=== PATIENT | male | born 1970 | race Caucasian/White ===

== ENCOUNTER 2017-11-20 06:19 | Emergency (ER) | payer MEDICAID, SELFPAY ==
[2017-11-20 06:20] VITALS: BP 142/100; PULSE 136; RESP 28; TEMP 37.1; O2SAT 96; BMI 31.5
--- NOTE | 2017-11-20 06:30 | RAD_ITS ---
STUDY: X-RAY CHEST REASON FOR EXAM: Male, 47 years old. Right upper posterior chest pain TECHNIQUE: Single frontal view of the chest. COMPARISON: None. FINDINGS: The lungs are clear and expanded. There is no demonstrated pleural abnormality. Normal size heart. Normal mediastinum and hay. Normal visualized pulmonary arteries. Normal visualized aortic arch and descending thoracic aorta. Normal visualized thoracic spine. Remote right rib trauma. Residual contrast in the urinary tract. RAD/Chest 1 View (Portable) IMPRESSION: No acute pulmonary findings. Electronically Signed: Prasad Hull MD at 7:57 EDT Tel , Service support ,
--- NOTE | 2017-11-20 06:35 | ED.DCSUM_ITS ---
- ER Visit Summary Date of Service: 11/20/17 Chief Complaint: Right upper quadrant and right flank pain History of Present Illness: The patient is a 47 M presents to the emergency department with right upper quadrant and right flank pain. The patient symptoms began about 12 hours ago. He states that it started gradually. He describes worsening pain mostly into his right flank. He is nauseated without vomiting. He also admits to some shortness of breath. He denies any fevers or chills. The patient has no underlying history of lung disease. His only history is a prior opiate abuse and he is on Suboxone. He has had no abdominal surgery. He denies any fevers or chills. He denies any chest pain. He states his pain is worse when he tries to lay flat. Physical Examination: Vital signs reviewed General: Well-nourished, well-developed Head: Normocephalic, atraumatic Eyes: Pupils equal and reactive, extraocular muscles intact Neck, supple, no lymphadenopathy Heart: Regular rate and rhythm Respiratory: No distress, clear bilaterally Abdomen: Soft, nontender, nondistended, no peritoneal signs Back: Right-sided CVA tenderness, no rash Extremities: Nontender, no edema, no cords Skin: Normal color no rash Neuro: Alert and oriented, no focal or lateralizing deficits Test Results: [] Emergency Department Course and Treatment: On initial exam, I cannot really cannot re-create any abdominal pain with palpation. The patient's pain seems to be mostly in his right flank. However, he was tachycardic and tachypneic. IV was established. Patient was given analgesics and antiemetics. Screening labs are ordered. I also ordered a d-dimer given his tachycardia and tachypnea along with his right flank pain and pain with taking deep breath. Treatment Plan: [] Disposition: [] Impression: [] This note was generated with [employer] dictation software. It may contain incorrect words, spelling, and punctuation that were not noted in review of the chart prior to signing <Emanuel Stephens - Last Filed: 11/20/17 06:35> - ER Visit Summary Date of Service: 11/20/17 Chief Complaint: [] History of Present Illness: The patient is a 47 M [] Physical Examination: Patient's most recent vitals have improved. He is breathing 20 times a minute with a heart rate 97 and pulse ox 94% on room air. Test Results: CT of the abdomen and pelvis was obtained and reviewed by me and interpreted by radiologist as remarkable for atelectasis right lower lobe. Because of the elevated d-dimer and the fact that the patient is tachycardic tachypnic with pleuritic chest pain a CTA of the chest was ordered. The CTA of the chest reveals a right lower lobe infiltrate. Emergency Department Course and Treatment: Patient received his first dose of antibiotics in the department and was discharged with prescription for anti- inflammatory and levofloxacin. He was not prescribed opiate analgesia since he has a history of opiate addiction and on Suboxone. Treatment Plan: Prescription for Naprosyn and levofloxacin Disposition: Discharged to home with friend Impression: 1. Community-acquired pneumonia, right lower lobe 2. Sinus tachycardia documented on monitor 3. Dyspnea secondary to #1 4. Pleuritic chest pain secondary to #1 This note was generated with [employer] dictation software. It may contain incorrect words, spelling, and punctuation that were not noted in review of the chart prior to signing <José Antonio Bryan - Last Filed: 11/20/17 08:40> ED Disposition <Emanuel Stephens - Last Filed: 11/20/17 06:35> <José Antonio Bryan - Last Filed: 11/20/17 08:40> - Plan for ED Patient: Disposition: Home or Assisted Living Chief Complaint: Abd Pain Instructions: ED Pneumonia Adult Prescriptions: Levofloxacin [Levaquin] 500 mg PO DAILY #6 tab Naproxen [Naprosyn] 500 mg PO BID #14 tab Referrals: Care Physician,No Primary [Primary Care Provider] - Additional Instructions: You should follow-up with your primary care doctor who is listed on your insurance card in 3-5 days.
[2017-11-20] MEDS: Ketorolac 30 MG/ML Syringe IV (06:45)
[2017-11-20] MEDS: 0.9% Normal Saline 1,000 ML 1000 ML IV (06:45)
[2017-11-20] MEDS: Ondansetron 4 MG/2 ML Vial IV (06:45)
--- NOTE | 2017-11-20 06:53 | CT_ITS ---
STUDY: CT ABDOMEN AND PELVIS WITH CONTRAST REASON FOR EXAM: Male, 47 years old. PAIN, HYPOXIA, NO KNOWN INJURY, HURTS TO BREATH, HX-CANCER ON EAR RADIATION DOSAGE (If Supplied By Facility): CTDIvol = ( 23.03 ) mGy, DLP = ( 2142.47 ) mGycm TECHNIQUE: Transaxial images were obtained from the dome of the diaphragm to the symphysis pubis without oral contrast. 100 ml of Isovue 300 contrast was administered. Sagittal and coronal images were reconstructed. Individualized dose optimization techniques were used for this CT. COMPARISON: 04/07/2012 FINDINGS: Right basilar alveolar disease. The visualized portions of the heart are within normal limits. Normal liver. Normal gallbladder and extrahepatic biliary system. Normal spleen. Normal pancreas. Normal bilateral adrenal glands. Normal right kidney. Normal left kidney. Normal visualized stomach. Normal small intestine. Normal colon. The appendix is visualized and appears normal. Normal abdominal aorta. Normal inferior vena cava. Normal retroperitoneum. Normal urinary bladder. There are prostatic calcifications.4.5 x 1.2 cm lipoma in the right lower lateral chest wall musculature. Normal abdominal wall. 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 CT/Abdomen/Pelvis W IV Cont ONLY IMPRESSION: Right basilar alveolar disease. No evidence of acute intestinal pathology or acute obstructive uropathy. 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 Electronically Signed: Prasad Hull MD at 7:45 EDT Tel , Service support ,
--- NOTE | 2017-11-20 06:53 | CT_ITS ---
STUDY: CTA CHEST REASON FOR EXAM: Male, 47 years old. PAIN, HYPOXIA, NO KNOWN INJURY, HURTS TO BREATH RADIATION DOSAGE (If Supplied By Facility): CTDIvol = ( 23.03 ) mGy, DLP = ( 2142.47 ) mGycm TECHNIQUE: The examination was performed with the intravenous administration of 100 ml of Isovue 370 contrast material. Post-processing of the angiographic images was performed, with multiplanar reformation and 3D reconstruction. Individualized dose optimization techniques were used for this CT. COMPARISON: None. FINDINGS: Normal enhancement of the main pulmonary artery and right and left pulmonary arteries. Normal enhancement of the bilateral peripheral pulmonary arteries. There is no demonstrated pulmonary embolism. Normal thoracic aorta and visualized great vessels. There is no demonstrated aortic dissection. Normal heart and pericardium. Normal mediastinum. Normal hilar regions. Normal visualized trachea and bronchi. Right lower lobe alveolar disease and atelectasis calcified granuloma in the right upper lobe. Normal pleura. Normal chest wall structures. Remote right rib trauma. Normal visualized upper abdomen. CT/CTA Chest W/WO Contrast IMPRESSION: Normal CTA chest examination, without a demonstrated pulmonary embolism or arterial dissection. Right lower lobe alveolar disease could represent pneumonia. Electronically Signed: Prasad Hull MD at 7:49 EDT Tel , Service support ,
[2017-11-20 07:00] LABS: Absolute Lymphocyte Count 2.58 X10^3/ul (0.83-4.51); Absolute Neutrophil Count 4.8 X10^3/uL (2.0-7.7); Basophil# 0.02 X10^3/uL; Basophil% 0.2 % (0-1); Eosinophil# 0.29 X10^3/uL; Eosinophils% 3.4 % (0-5); Hematocrit 44.3 % (40-54); Hemoglobin 15.1 g/dl (13.0-16.5); Lymphocyte # 2.58 X10^3/ul (4.0); Lymphocyte % 30.3 % (19-41); Mean Corp Hgb Conc 34.1 g/gl (32-36); Mean Corpuscular Hgb 30.3 pg (27.0-32.0); Mean Platelet Vol. 11.1 fl (6.2-12.0); Monocyte# 0.78 X10^3/uL; Monocyte% 9.2 % (0-10); Neutrophil # 4.82 X10^3/uL (2.7-7.7); Neutrophil % 56.7 % (47-70); Platelet Count 206 K/mm3 (150-450); RBC Distribution Width CV 12.5 % (11.6-14.6); RBC Distribution Width SD 40.5 fl (35.1-43.9); Red Blood Count 4.98 M/mm3 (4.6-6.2); White Blood Count 8.5 K/mm3 (4.4-11.0)
[2017-11-20 07:01] LABS: ALB/GLOB Ratio 1.1 RATIO (0.9-2.4); AST(SGOT) 14 U/L (15-37); Alanine Aminotransfer ALT/SGPT 26 U/L (16-61); Albumin, Serum 3.9 g/dL (3.2-5.0); Alkaline Phosphatase 97 U/L (45-117); Anion Gap 8 (5-15); BUN 11 mg/dL (7-18); Calcium,Total 8.8 mg/dL (8.5-10.1); Chloride 100 mmol/L (98-107); EST Glomerular Filtration Rate 76 mL/min (>60); Est Glom Filt Rate - Afr Amer 92 mL/min (>60); Globulin 3.6 g/dL (2.2-4.2); Glucose 122 mg/dL (74-106); Lipase 84 U/L (73-393); Potassium 3.7 mmol/L (3.5-5.1); Protein, Total 7.5 g/dL (6.4-8.2); Sodium Level 139 mmol/L (136-145)
[2017-11-20 07:09] LABS: D-Dimer Quantitative (DVT/PE) 0.77 FEU/ug/m (0.27-0.49)
[2017-11-20 07:10] LABS: POSITIVE COUNT NO; POSITIVE DIFFERENTIAL NO; POSITIVE MORPHOLOGY NO
[2017-11-20 07:18] LABS: Red Blood Cells-Urine 0 SEEN /hpf (0-5)
[2017-11-20 07:20] LABS: Color, Urine Yellow (Yellow); Glucose, Dipstick Normal (Normal); Ketone-Dipstick Negative (Negative); Leukocyte Esterase-Dipstick 25 /ul (Negative); Nitrite-Dipstick Negative (Negative); Occult Blood-Urine 10 /ul (Negative); Protein-Dipstick Negative (Negative); Specific Gravity, Urine 1.025 (1.002-1.030); Urine Bilirubin Dipstick Negative (Negative); Urine Clarity Sl. Cloudy (Clear); Urine Urobilinogen 1 mg/dl (Normal)
[2017-11-20 07:26] LABS: Squamous Epithelial Cells - UA 0-5 SEEN /hpf (0-5); White Blood Cells 0-5 SEEN /hpf (0-5)
[2017-11-20 07:27] LABS: Bacteria RARE /hpf (None Seen); Mucous, Urine 2+ /hpf (<or=2+)
[2017-11-20 08:00] VITALS: BP 123/96; PULSE 97; RESP 18; O2SAT 97
[2017-11-20 08:18] VITALS: BP 140/98; PULSE 84; RESP 17; O2SAT 94
[2017-11-20 08:39] VITALS: BP 132/83; PULSE 103; RESP 17; O2SAT 95
== END 2017-11-20 08:48 | disposition home or self-care (01) ==
PROVIDERS: Emergency Provider Emergency Medicine
DX: J18.9 Pneumonia, unspecified organism (principal); R07.81 Pleurodynia; R06.00 Dyspnea, unspecified; R00.0 Tachycardia, unspecified; Z72.0 Tobacco use; F11.10 Opioid abuse, uncomplicated; Z79.899 Other long term (current) drug therapy
CPT/HCPCS: 71045; 71275; 74177; 80053; 81001; 83690; 85025; 85379; 96361; 96374; 96375; 99285; J7030; Q9967; A4216; J2405

== ENCOUNTER → 2020-02-18 09:15 | Outpatient (CLI) | payer MEDICAID, SELFPAY | DX: Z20.828 Contact with and (suspected) exposure to other viral communicable diseases (principal) | CPT/HCPCS: 87635; C9803; U0003 ==

== ENCOUNTER 2022-06-04 12:43 | Emergency (ER) | payer MEDICAID, SELFPAY ==
[2022-06-04 12:44] VITALS: BP 121/91; PULSE 96; RESP 14; TEMP 36.1; O2SAT 95; BMI 34.8
--- NOTE | 2022-06-04 13:14 | RAD_ITS ---
HISTORY: fall/injury. TECHNIQUE: XR Ribs Unilateral W/ PA Chest Min 3 Views. COMPARISON: 11/20/2017. FINDINGS: CARDIOMEDIASTINAL BORDERS: Cardiac silhouette within normal limits in size. Mediastinal contour unremarkable. LUNGS: Radiographically clear. PLEURA: No pleural effusion or pneumothorax seen. OSSEOUS STRUCTURES: No acute displaced left rib fracture seen. RAD/Ribs Uni Min 3V w/PA Chest IMPRESSION: No acute abnormality identified. Electronically Signed: Quita Ly MD at 13:53 EST ,
--- NOTE | 2022-06-04 13:16 | EX.ED.GENINJ ---
HPI History of Present Illness Chief Complaint: Chest Other Informant: patient Onset/Context/Timing Onset: Days (2-3) Mechanism/Context: Fall and Trip Location of pain/injuries: - (Left chest wall/ribs) Quality of Pain: Aching Current Severity: Moderate Maximum Severity: Moderate Worsened by: Deep inspiration, movement, palpation Relieved by: Remaining still and breathing easy Associated Symptoms Associated Symptoms: Negative for Parasthesias, Weakness, Loss of function, Inability to ambulate, Loss of consciousness or Amnesia Narrative Narrative: Patient was walking his dog a couple nights ago, the dog suddenly pulled and started to run, pulling the patient because he was holding onto the leash, and his foot got caught on an uneven piece of sidewalk, causing him to fall down to his left side injuring his chest wall against the cement, he states he uses left hand to brace himself as well, he does not have any pain in his shoulder or upper extremity or anywhere else. He states initially the pain was not severe but it has gotten worse of the last 2 days. PFSH PFS Medical History no medical history no medical history Home Medications buprenorphine 8 mg-naloxone 2 mg sublingual tablet 1 tab sublingual DAILY 11/20/17 [History Last Taken Unknown] levofloxacin 500 mg tablet 500 mg PO DAILY #6 tabs 11/20/17 [Rx Last Taken Unknown] naproxen 500 mg tablet 500 mg PO BID #14 tabs 11/20/17 [Rx Last Taken Unknown] hydrocodone-acetaminophen 5-325mg 5mg-325mg 1 tab PO Q6H PRN PRN Pain 3 days #8 TABLETS 06/04/22 [Rx Last Taken Unknown] Allergy/AdvReac Type Severity Reaction Status Date / Time codeine Allergy Itching Verified 06/04/22 12:44 Sulfa (Sulfonamide Allergy Shortness Verified 06/04/22 12:44 Antibiotics) of breath naproxen AdvReac Vomiting Verified 06/04/22 12:44 Social History Smoking Status: Never smoker ROS ROS ED Constitutional Constitutional ED: Denies chills or fever(s) Eyes Eyes: Denies change in vision or diplopia ENT ENT ED: Denies ear pain, epistaxis, facial pain or rhinorrhea Cardiovascular Cardiovascular: Reports chest pain; Denies palpitations Respiratory/Chest Respiratory/Chest: Denies cough or dyspnea Gastrointestinal Gastrointestinal: Denies abdominal pain, diarrhea, melena, nausea or vomiting Genitourinary Genitourinary ED: Denies dysuria or hematuria Musculoskeletal Musculoskeletal: Denies back pain, extremity pain or neck pain Integumentary Denies abscess, Abrasions, laceration or rash Neurologic Neurologic: Denies confusion, headache(s), paresthesias or weakness EXAM Physical Exam Const Vital Signs: 06/04/22 12:44 06/04/22 13:00 Temperature 97 F L Temperature Source Temporal Pulse Rate 96 Respiratory Rate 14 Respiratory Effort Normal Non-Labored Respiratory Pattern Normal Blood Pressure 121/91 H Blood Pressure Mean 101 Pulse Ox 95 Oxygen Delivery Method Room Air Positive well nourished and well developed General Appearance ED: well developed and NAD HEENT Reports nasal mucous membranes and turbinates normal atraumatic Face and Sinus: Negative for facial tenderness Eyes PERRL and EOMs intact bilaterally Visual Acuity: other Other Details: no entrapment or pain with extraocular movements Neck full ROM and supple General: Negative for tenderness Chest Wall inspection of chest normal Chest Narrative: Tender left lower anterior ribs, up to the inframammary area as well as the anterior axillary line. No crepitance or subcutaneous emphysema. No step-off. No subcostal abdominal tenderness. No sternal tenderness. No spinal tenderness. No splinting with deep inspiration although he states that hurts. Chest: symmetrical chest wall rise and tenderness; Negative for crepitus Resp normal respiratory effort and clear to auscultation bilaterally Resp Narrative: Equal breath sounds are bilaterally and equal. Percussion: other equal BS bilat Cardio no murmurs Rate: regular rate Rhythm: regular rhythm GI normal to inspection, nondistended, normoactive bowel sounds, soft to palpation and non-tender Back/Spine normal ROM Cervical Spine: Negative for cervical spine tenderness Thoracic Spine / Upper Back: Negative for thoracic spinal tenderness Lumbar Spine / Lower Back: Negative for lumbar spinal tenderness Extremity normal to inspection and full ROM General Extremety ED: Negative for tenderness Neuro oriented x3, CN's II-XII intact bilaterally, moves all extremities, no focal motor deficits and no sensory deficits noted Alexis Coma Scale: document GCS findings Spontaneous Obeys Commands Oriented 15 Sensorium / Orientation: awake and alert Psych mental status grossly normal and thought process normal Skin no wounds Lesions: no lesions Rashes: no rashes MDM MDM MDM Narrative Medical decision making narrative: 5 view x-ray series of the left ribs including PA chest normal on my interpretation. Radiology in agreement. Patient reassured, does not have a displaced fracture and/or pneumothorax. Certainly could be hairline fracture that is not showing up on x-ray, treatment is the same as a bruised rib cage for now which is supportive care, and he is asking for something for pain for when he is going to bed because he is having trouble sleeping due to the pain. I think that is not unreasonable. I saw that he is on Suboxone, however. I asked him about this first. He admits that he is on it because of addiction, he has been on it for over 6 months and is now down to 1 Suboxone per day, he follows with Dr. Bal. He talk to Dr. Bal prior to coming here, and according to him, if he is put on some narcotic to take at night before bed, they will continue to monitor him for that and are okay with that. Radiography Diagnostic Testing: Clinical Impression(s) from Imaging Studies Ribs w/Chest X-Ray 06/04/22 13:14 IMPRESSION: No acute abnormality identified. Electronically Signed: Quita Ly MD at 13:53 EST , Discharge Plan Triage Chief Complaint: Chest Other ED Provider: Hi Roman Dx/Rx/DC Orders Clinical Impression: Contusion of left chest wall, Fall from slip, trip, or stumble Instructions: ED Rib Contusion or Minor Fracture Prescriptions: New hydrocodone-acetaminophen [hydrocodone-acetaminophen] 1 TABLET tablet 1 tab PO Q6H PRN PRN (Reason: Pain) 3 Days Qty: 8 0RF No Action buprenorphine-naloxone 0 tablet, sublingual 1 tab sublingual DAILY Label Comments: levofloxacin 500 MG tablet 500 mg PO DAILY Qty: 6 0RF naproxen 500 MG tablet 500 mg PO BID Qty: 14 0RF Primary Care Provider: Care Physician,No Primary Referrals: Care Physician,No Primary [Primary Care Provider] - Doctor,Your [Non-Staff] - 1 Week if not improving Disposition Disposition: Home, Self Care
[2022-06-04 14:38] VITALS: RESP 18
== END 2022-06-04 14:39 | disposition home or self-care (01) ==
PROVIDERS: Emergency Provider Emergency Medicine; Visit Provider Emergency Medicine
DX: S20.219A Contusion of unspecified front wall of thorax, initial encounter (principal); W19.XXXA Unspecified fall, initial encounter
CPT/HCPCS: 71101; 99282

== ENCOUNTER 2025-02-09 18:01 | Emergency (ER) | payer MEDICAID, SELFPAY ==
[2025-02-09 18:01] VITALS: BP 125/93; PULSE 122; RESP 26; TEMP 36.4; O2SAT 95; BMI 31.3
[2025-02-09 18:04] VITALS: BP 125/93; PULSE 122; RESP 26; TEMP 36.4; O2SAT 96
--- NOTE | 2025-02-09 18:15 | EKG12_ITS ---
Test Reason : SOB Blood Pressure : */* mmHG Vent. Rate : 118 BPM Atrial Rate : 118 BPM P-R Int : 156 ms QRS Dur : 102 ms QT Int : 314 ms P-R-T Axes : 55 20 -22 degrees QTcB Int : 440 ms Sinus tachycardia Inferior infarct , age undetermined T wave abnormality, consider anterior ischemia Abnormal ECG Confirmed by NATALIE JACKSON, STACIE ([id number]), clinical editor ALISON JAIMES ([id number]) on 02/11/2025 7:53:54 AM Referred By: ES/UG Confirmed By: STACIE ESTRADA MD
[2025-02-09 18:23] VITALS: O2SAT 93
[2025-02-09 18:59] VITALS: BP 137/94; PULSE 113; RESP 17; O2SAT 93
[2025-02-09 19:04] VITALS: BP 124/100; PULSE 106; RESP 19; TEMP 36.3; O2SAT 95
--- NOTE | 2025-02-09 19:04 | RAD_ITS ---
EXAM: XR Chest, 2 Views CLINICAL INDICATION: PRODUCTIVE COUGH, FEVER, TACHYPNEA TECHNIQUE: Frontal and lateral views of the chest. COMPARISON: No relevant prior studies available. FINDINGS: LUNGS AND PLEURAL SPACES: Left upper lobe atelectasis or pneumonia. No pneumothorax. HEART: Unremarkable. No cardiomegaly. MEDIASTINUM: Unremarkable. Normal mediastinal contour. BONES/JOINTS: Unremarkable. No acute fracture. RAD/Chest PA and Lateral IMPRESSION: Left upper lobe atelectasis or pneumonia. Reading Location: [id number]
--- NOTE | 2025-02-09 19:05 | ED.VIS.DYS ---
HPI History of Present Illness Chief Complaint: Shortness of Breath Detail of Chief Complaint: Shortness of breath, productive cough, elevated temperature Informant: patient Onset/Context/Timing Onset: Days (, February 06) Context: sudden Timing: Continuous and Waxes and wanes Quality: Positive for Dyspnea on exertion and Wheezing; Negative for Orthopnea or PND Current Severity: Mild Maximum Severity: Severe Worsened by: Exertion; Not Worsened By Lying flat Relieved by: Nothing Associated Symptoms cough, fever, yellow sputum and green sputum; Negative for rhinorrhea, post nasal drip, ear pain, sore throat, subjective, chills, sweats, clear sputum or white sputum Chest Pain: Positive for None Narrative Narrative: Patient is a 54-year-old male. He chews tobacco. He has allergy to sulfa and NSAIDs. He is on Suboxone. Has been on Suboxone for 5 years. He presents because of a productive cough that started . After coughing episode today he became lightheaded. He had a Tmax of 100.0 ?F. He denies rhinorrhea postnasal drainage or sore throat. He denies leg pain, swelling or discoloration. He denies history of VTE and he has no risk factors for VTE. PE Risk Factors: Negative for Cancer, OCP + Smoking + > 35, Prior DVT or PE, Recent immobilization, Recent surgery or Recent travel Prior similar symptoms: Yes (Pneumonia) Recent Illness/Hospitalization: No [facility] Medical History (Updated 02/09/25 @ 20:[address] José Antonio Bryan MD) Asthma Home Medications ?Medication ?Instructions ?Recorded ?Last Taken ?Type buprenorphine 8 mg-naloxone 2 mg 1 tab sublingual DAILY 11/20/17 Unknown History sublingual tablet levofloxacin 500 mg tablet 500 mg PO DAILY #6 tabs 11/20/17 Unknown Rx naproxen 500 mg tablet 500 mg PO BID #14 tabs 11/20/17 Unknown Rx hydrocodone-acetaminophen 5-325mg 1 tab PO Q6H PRN PRN Pain 3 days 06/04/22 Unknown Rx 5mg-325mg #8 TABLETS levofloxacin 500 mg tablet 500 mg PO DAILY #6 tabs 02/09/25 Unknown Rx Allergy/AdvReac Type Severity Reaction Status Date / Time codeine Allergy Itching Verified 02/09/25 18:04 Sulfa (Sulfonamide Allergy Shortness Verified 02/09/25 18:04 Antibiotics) of breath naproxen AdvReac Vomiting Verified 02/09/25 18:04 Social History Smoking Status: Never smoker ROS ROS ED Constitutional Constitutional ED: Reports chills and fever(s); Denies sweats or weight loss Eyes Eyes: Denies blurry vision or change in vision ENT ENT ED: Denies ear pain, rhinorrhea or sore throat Cardiovascular Cardiovascular: Denies chest pain, orthopnea, palpitations or paroxysmal nocturnal dyspnea Respiratory/Chest Respiratory/Chest: Reports cough, dyspnea and sputum; Denies dyspnea on exertion, orthopnea or paroxysmal nocturnal dyspnea Gastrointestinal Gastrointestinal: Denies abdominal pain, melena, nausea or vomiting Genitourinary Genitourinary ED: Denies dysuria or hematuria Musculoskeletal Musculoskeletal: Denies arthralgias or myalgias Integumentary Denies rash Neurologic Neurologic: Denies headache(s), paresthesias or weakness Endocrine Endocrinology: Denies cold intolerance or heat intolerance Hematologic/Lymphatic Hematologic/Lymphatic: Denies easy bleeding EXAM Physical Exam Const Vital Signs: 02/09/25 18:01 02/09/25 18:04 02/09/25 18:23 Temperature 97.5 F L 97.5 F L Temperature Source Oral Oral Pulse Rate 122 H 122 H Respiratory Rate 26 H 26 H Respiratory Effort Short of Breath Respiratory Depth Normal Respiratory Pattern Normal Blood Pressure 125/93 H 125/93 H Blood Pressure Mean 103 103 Pulse Ox 95 96 Oxygen Delivery Method Room Air Room Air 02/09/25 18:59 02/09/25 19:04 Temperature 97.4 F L Temperature Source Oral Pulse Rate 113 H 106 H Respiratory Rate 17 19 H Respiratory Effort Respiratory Depth Respiratory Pattern Blood Pressure 137/94 H 124/100 H Blood Pressure Mean 108 108 Pulse Ox 93 95 Oxygen Delivery Method Room Air Room Air Positive well nourished and well developed Constitutional Narrative: Patient is tachycardic. He is tachypneic. Not febrile. Not hypoxic. General Appearance ED: well developed; Negative for pallor HEENT Reports moist mucous membranes HEENT Narrative: Head is atraumatic normocephalic. Ears are normal. Nares patent. Posterior pharynx is normal Eyes PERRL and EOMs intact bilaterally General Eye ED: Negative for pale conjunctiva or scleral icterus Neck no lymphadenopathy, supple and no meningeal signs Resp normal respiratory effort and clear to auscultation bilaterally Cardio regular rhythm, S1 normal heart sound, S2 normal heart sound and no murmurs Rate: tachycardic GI non-tender, non-distended and no masses Palpation: soft Extremity normal to inspection General Extremety ED: Negative for edema or tenderness General Extremity: Negative for edema Neuro oriented x3 and CN's II-XII intact bilaterally Sensorium / Orientation: alert Psych mental status grossly normal Skin skin turgor normal General Skin Exam: Negative for jaundice or pallor MDM MDM MDM Narrative Medical decision making narrative: Differential diagnosis is pneumonia, purulent bronchitis, acute viral bronchitis. Since she has had fever tachycardia tachypnea we will obtain chest x-ray and appropriate blood work to assess for endorgan dysfunction. History & Record Review Additional record(s) reviewed:: Prior ED visit (Seen last in the ER June 2022 for blunt trauma to the chest.) Lab Data Attestation: I reviewed the patient's lab results. Lab results narrative: CBC is normal. Competence of metabolic panel with slight elevation of glucose of 118 otherwise normal. Lactate is normal. Labs: Laboratory Results - last 24 hr 02/09/25 02/09/25 18:34 19:13 WBC 4.9 RBC 4.83 Hgb 14.5 Hct 42.6 MCV 88.2 MCH 30.0 MCHC 34.0 RDW Std Deviation 40.0 RDW Coeff of Nabila 12.4 Plt Count 161 MPV 11.0 Immature Gran % (Auto) 0.400 Neut % (Auto) 67.5 Lymph % (Auto) 22.1 Titus % (Auto) 8.4 Eos % (Auto) 1.2 Baso % (Auto) 0.4 Absolute Neuts (auto) 3.3 Absolute Lymphs (auto) 1.08 Nucleated RBC % 0 Sodium 140 Potassium 3.6 Chloride 103 Carbon Dioxide 24.2 Anion Gap 13 BUN 13 Creatinine 0.98 Estim Creat Clear Calc 97.44 Est GFR (MDRD) Non-Af 91 BUN/Creatinine Ratio 12.9 Glucose 118 H Lactic Acid 1.6 Calcium 9.6 Total Bilirubin 0.58 AST 21 ALT 13 Alkaline Phosphatase 78 Total Protein 7.0 Albumin 4.3 Globulin 2.7 Albumin/Globulin Ratio 1.6 Radiography Chest X-Ray - ED: 2 View, Read by ED Physician, Normal, Heart, Mediastinum, Bony Structures, No Acute Disease and Left Infiltrate Diagnostic Testing: Clinical Impression(s) from Imaging Studies Chest X-Ray 02/09/25 19:04 IMPRESSION: Left upper lobe atelectasis or pneumonia. Reading Location: [facility] Treatment and Re-Evaluation :: Patient was informed of his results. He will receive first dose of levofloxacin discharge prescription for levofloxacin. Comments:: Curb 65 score 0. Poor scores 55 points. Risk class II with a 0.6 to 0.9% mortality at 30 days. Patient is a candidate for outpatient treatment. Discharge Plan Triage Chief Complaint: Shortness of Breath ED Provider: José Antonio Bryan Dx/Rx/DC Orders Clinical Impression: Community acquired pneumonia, Tachycardia, Dyspnea Instructions: ED Pneumonia (Adult) Prescriptions: New levofloxacin 500 mg tablet 500 mg PO DAILY Qty: 6 0RF No Action buprenorphine-naloxone 0 tablet, sublingual 1 tab sublingual DAILY Patient Comments: levofloxacin 500 MG tablet 500 mg PO DAILY Qty: 6 0RF naproxen 500 MG tablet 500 mg PO BID Qty: 14 0RF hydrocodone-acetaminophen [hydrocodone-acetaminophen] 1 TABLET tablet 1 tab PO Q6H PRN PRN (Reason: Pain) 3 Days Qty: 8 0RF Primary Care Provider: Care Physician,No Primary Referrals: Care Physician,No Primary [Primary Care Provider, Medical] Activity Restrictions/Additional Instructions: Follow-up with your doctor. The name of your doctor is located on your insurance card issued to you by [employer] ([employer]) Print Language: Mosotho Disposition Disposition: Home, Self Care
[2025-02-09] MEDS: 0.9% Normal Saline (1000mL) 1,000 ML 1000 ML IV (19:12)
[2025-02-09 19:19] LABS: Hematocrit 42.6 % (40-54); Hemoglobin 14.5 g/dL (13.0-16.5); Immature Granulocytes Count 0.020 X10^3/uL (0.0-0.0); Mean Corp Hgb Conc 34.0 g/dL (32-36); Mean Corpuscular Volume 88.2 fL (80-94); Mean Platelet Vol. 11.0 fl (6.2-12.0); NRBC Flagged by Analyzer 0 % (0-5); Platelet Count 161 K/mm3 (150-450); RBC Distribution Width CV 12.4 % (11.6-14.6); RBC Distribution Width SD 40.0 fl (35.1-43.9); Red Blood Count 4.83 M/mm3 (4.6-6.2); White Blood Count 4.9 K/mm3 (4.4-11.0)
[2025-02-09 19:49] LABS: AST(SGOT) 21 U/L (<=37); Alanine Aminotransfer ALT/SGPT 13 U/L (<=46); Albumin, Serum 4.3 g/dL (3.5-5.0); Alkaline Phosphatase 78 U/L (40-129); Anion Gap 13 (5-15); BUN 13 mg/dL (4-19); BUN/Creat Ratio 12.9 RATIO (10-20); Calcium,Total 9.6 mg/dL (7.6-11.0); Carbon Dioxide 24.2 mmol/L (21.0-32.0); Chloride 103 mmol/L (98-108); Estimated Creatinine Clearance 97.44 ml/min (50-250); Globulin 2.7 g/dL (2.2-4.2); Glucose 118 mg/dL (70-99); Potassium 3.6 mmol/L (3.3-5.1)
[2025-02-09 21:14] VITALS: BP 124/100; PULSE 106; RESP 19; TEMP 36.3; O2SAT 95
== END 2025-02-09 21:14 | disposition home or self-care (01) ==
PROVIDERS: Emergency Provider Emergency Medicine; Visit Provider Emergency Medicine
DX: J18.9 Pneumonia, unspecified organism (principal); J45.909 Unspecified asthma, uncomplicated; R00.0 Tachycardia, unspecified; F17.220 Nicotine dependence, chewing tobacco, uncomplicated; Z88.6 Allergy status to analgesic agent; Z88.2 Allergy status to sulfonamides; Z79.891 Long term (current) use of opiate analgesic
CPT/HCPCS: 71046; 80053; 83605; 85025; 93005; 96360; 96361; 99284; A4216